=== PATIENT | male | born 2000 | race Caucasian/White ===

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

== ENCOUNTER 2023-04-23 17:34 | Emergency (ER) | payer OTHER ==
[2023-04-23 17:55] VITALS: BP 131/79
--- NOTE | 2023-04-23 18:22 | ED Physician Documentation ---
PD HPI LOWER EXT INJURY - Stated complaint Stated Complaint: HIP/LEG PX - Chief complaint Chief Complaint: Ext Problem - History obtained from History obtained from: Patient - Additional information Additional information: Previously healthy 22-year-old gentleman who is active duty in the [employer] was coming down a ladder off of a plane at about 1330 today and slipped and slid down the ladder and hurt his left hip. No other injuries. No head, neck, rib injury. He is able to walk and bear weight with mild pain. PD PAST MEDICAL HISTORY - Past Medical History Cardiovascular: None Respiratory: None Endocrine/Autoimmune: None GI: None - Past Surgical History Past Surgical History: No - Present Medications Home Medications: Ambulatory Orders Medication Instructions Recorded Confirmed No Known Home Medications 04/23/23 04/23/23 - Allergies Allergies/Adverse Reactions: Allergies Allergy/AdvReac Type Severity Reaction Status Date / Time No Known Drug Allergies Allergy Verified 04/23/23 17:54 - Social History Does the pt smoke?: No Smoking Status: Never smoker Does the pt have substance abuse?: No PD ED PE NORMAL - Vitals Vital signs reviewed: Yes - General General: Alert and oriented X 3, No acute distress - Neck Neck: Supple, no meningeal sign, No bony TTP - Back Back: No CVA TTP, No spinal TTP - Derm Derm: Normal color, Warm and dry - Extremities Extremities: Other (Mild tenderness over the lateral hip with an abrasion/contusion the visible there. Painless internal and external rotation. The remainder of his major joints are palpated and ranged without pain.) - Neuro Neuro: Alert and oriented X 3 Eye Opening: Spontaneous Motor: Obeys Commands Verbal: Oriented GCS Score: 15 Results - Vitals Vitals: Vital Signs - 24 hr 04/23/23 17:48 Temperature 36.6 C Heart Rate 64 Respiratory 18 Rate Blood Pressure 131/79 H O2 Saturation 99 Oxygen O2 Source Room air - Rads (name of study) 2 view x-ray of left hip is negative for fracture. Relevant Findings:: Final report received, EMP independent interpretation of test PD Medical Decision Making - ED course ED course: Examination really not concerning for fracture especially in this young man with good bone density. The risk of occult fracture is very low to 0. Departure - Departure Disposition: 01 Home, Self Care Clinical Impression: Contusion of left hip Qualifiers: Encounter type: initial encounter Qualified Code(s): S70.02XA - Contusion of left hip, initial encounter Condition: Good Record reviewed to determine appropriate education?: Yes Instructions: ED Contusion Soft Tissue Comments: Follow-up with your flight surgeon, return for new or worsening symptoms. Tylenol and/or ibuprofen as needed for pain discomfort you can ice as well. The abrasion over the hip is pretty shallow, no specific therapy is necessary, soap and water/showering is fine. Discharge Date/Time: 04/23/23 18:54
--- NOTE | 2023-04-23 18:45 | XRAY Report ---
PROCEDURE: Hip w/Pelvis 2-3V LT INDICATIONS: hip inj TECHNIQUE: AP pelvis with lateral view(s) of the left hip(s). COMPARISON: None. FINDINGS: Bones: No fractures or dislocations. No suspicious bony lesions. Soft tissues: No suspicious soft tissue calcifications or masses. IMPRESSION: No acute fracture. No osseous lesion. If symptoms and/or clinical suspicion for pathology continue, f urther assessment with repeat plain films, or advanced imaging (e.g., CT, MRI, or bone scan) is recom mended for further assessment. Reviewed by: Phoenix Santana MD on 04/23/2023 6:44 PM PDT Approved by: Phoenix Santana MD on 04/23/2023 6:44 PM PDT Station ID: [id number]
== END 2023-04-23 18:54 | disposition home or self-care (01) ==
LOC: ED 17:34
DX: S70.02XA Contusion of left hip, initial encounter (principal); W11.XXXA Fall on and from ladder, initial encounter; Y99.1 Military activity
CPT/HCPCS: 99283

== ENCOUNTER 2024-01-10 22:31 | Emergency (ER) | payer OTHER ==
[2024-01-10 22:55] VITALS: BP 147/86; O2SAT 100
--- NOTE | 2024-01-10 22:56 | ED Physician Documentation ---
PD HPI CHEST PAIN - Stated complaint Stated Complaint: CHEST PX - Chief complaint Chief Complaint: Cardiac - History obtained from History obtained from: Patient - Additional information Additional information: HPI from patient. Patient complains of midline chest pain, described as pressure sensation. Onset approximately 6 PM this afternoon while at work undertaking light activity. The pain waxes and wanes without any apparent exacerbating/ameliorating factors, and the pain is nearly resolved by the time of this HPI. Pain does not radiate. He denies dyspnea, cough, leg swelling. No recent surgery, no recent long air travel. He says he has had similar episodes in the past, including 2 years ago when he was evaluated in this ER; at that time, workup included blood test, chest x-ray, and EKG without concerning/diagnostic findings. The final diagnosis on that visit was costochondritis. Review of Systems Cardiac: reports: Chest pain / pressure. denies: Palpitations, Pedal edema, Calf pain Respiratory: denies: Dyspnea, Cough, Hemoptysis GI: denies: Abdominal Pain, Nausea, Vomiting PD PAST MEDICAL HISTORY - Past Medical History Past Medical History: No Cardiovascular: None Respiratory: None Endocrine/Autoimmune: None GI: None - Past Surgical History Past Surgical History: Yes HEENT: Other - Present Medications Home Medications: Ambulatory Orders Medication Instructions Recorded Confirmed No Known Home Medications 04/23/23 01/10/24 - Allergies Allergies/Adverse Reactions: Allergies Allergy/AdvReac Type Severity Reaction Status Date / Time No Known Drug Allergies Allergy Verified 01/10/24 22:42 - Social History Does the pt smoke?: No Smoking Status: Never smoker Does the pt drink ETOH?: Yes ETOH Use: Liquor Does the pt have substance abuse?: No - Immunizations Immunizations are current?: Yes - POLST Patient has POLST: No PD ED PE NORMAL - Vitals Vital signs reviewed: Yes - General General: Alert and oriented X 3, No acute distress, Well developed/nourished - Cardiac Cardiac: RRR, No murmur, No gallop, No rub - Respiratory Respiratory: No respiratory distress, Clear bilaterally - Abdomen Abdomen: Soft, Non tender Results - Vitals Vitals: Vital Signs - 24 hr 01/10/24 22:35 Temperature 36.9 C Heart Rate 81 Respiratory 18 Rate Blood Pressure 147/86 H O2 Saturation 100 Oxygen O2 Source Room air - EKG (time done) No standard instances EKG releavant findings:: EKG personally interpreted by author of this note. Relevant findings are: Rate: Rate (enter#) (74) Rhythm: NSR [place]: RAD (borderline RAD) Intervals: Normal [place] QRS: Normal Ischemia: ST elevation c/w repol - Rads (name of study) CXR Relevant Findings:: Prelim report reviewed, EMP independent interpretation of test (I reviewed these images and my interpretation is no acute cardiopulmonary abnormality), See rad report PD Medical Decision Making - ED course Complexity details: reviewed results, re-evaluated patient, considered differential, d/w patient ED course: Unremarkable chest x-ray and EKG; EKG has early repolarization pattern. VSS and he is PERC (PE) negative. Pericarditis considered but no EKG pattern to suggest this diagnosis, pain is not changed with position. CAD/angina/[place] would be exceedingly unusual at this age. Aortic dissection would likewise be unusual; also, pain does not radiate (such as to the back) and has nearly resolved by the time of this HPI (would be unusual for dissection to spontaneously improve). No aortic silhouette abnormality to support aortic aneurysm, which would also be highly unusual at this age. There is no tenderness to palpation of the chest to support costochondritis. Etiology of his symptoms is not apparent at this time, but further testing from an emergent perspective is not indicated (unlikely to yield or suggest a diagnosis). However, we discussed return precautions, and I advised him to follow-up with his primary care provider, next available appointment, for reevaluation. Departure - Departure Disposition: 01 Home, Self Care Clinical Impression: Chest pain Condition: Good Instructions: ED Chest Pain NonCardiac Comments: There were no concerning nor diagnostic findings on tonight's chest x-ray, EKG. At this time, blood tests are not indicated from an emergency standpoint. The cause of your chest pain is not apparent at this time. Contact your primary care provider tomorrow when the office opens to arrange for next available appointment for reevaluation. Further testing might be needed even if the symptoms do not recur. Please return to the emergency department if your symptoms worsen in any way, or if you develop new/concerning signs/symptoms (such as fever, shortness of breath, cough).
--- NOTE | 2024-01-10 23:32 | XRAY Report ---
PROCEDURE: Chest 2V INDICATIONS: chest pain TECHNIQUE: 2 views of the chest were acquired. COMPARISON: None. FINDINGS: Surgical changes and devices: None. Lungs and pleura: No pleural effusions or pneumothorax. Lungs are clear. Mediastinum: Mediastinal contours appear normal. Heart size is normal. Bones and chest wall: No suspicious bony lesions. Overlying soft tissues appear unremarkable. IMPRESSION: No acute cardiopulmonary process. Reviewed by: Srinivasa Melendrez MD on 01/10/2024 11:30 PM [facility] Approved by: Srinivasa Melendrez MD on 01/10/2024 11:30 PM [facility] Station ID: [id number]
== END 2024-01-11 00:04 | disposition home or self-care (01) ==
LOC: ED 22:31
DX: R07.89 Other chest pain (principal)
CPT/HCPCS: 93005; 99283